=== PATIENT | male | born 2000 | race Asian ===

== ENCOUNTER 2024-05-11 08:26 | Emergency (ER) | payer BC ==
[~2024-05-11] VITALS: Ht 175.3 cm; Wt 70.0 kg
[2024-05-11 08:33] VITALS: O2SAT 100
[2024-05-11 08:36] VITALS: BP 119/80; PULSE 73; RESP 18; TEMP 98.1; O2SAT 100
[2024-05-11] MEDS ORDERED: OCUFLX RIGHTEYE (08:54)
== END 2024-05-11 09:23 | disposition home or self-care (01) ==
LOC: ER 08:26
DX: H10.9 Unspecified conjunctivitis (principal)
CPT/HCPCS: 99283